=== PATIENT | female | born 1985 ===

== ENCOUNTER 2018-11-14 23:03 | Inpatient (IN) | payer OTHER ==
[~2018-11-14] VITALS: Ht 170.2 cm; Wt 75.0 kg
[2018-11-14 23:19] VITALS: BP 125/80; PULSE 90; TEMP 98.1
[2018-11-14 23:30] VITALS: BP 125/80; PULSE 90; TEMP 98.1
[2018-11-14] MEDS ORDERED: PRENATAL 191 TAB PO (23:40)
[2018-11-14 23:45] VITALS: BP 127/76; PULSE 81
[2018-11-15] VITALS (25 sets, daily range): BP systolic 113–138; BP diastolic 63–89; PULSE 76–114; TEMP 98.4–101.3
[2018-11-15 02:12] LABS: BASO # 0.1 (0.0-0.2); BASO % 0.3 % (0.0-2.0); EOS % 0.1 % (0-4.0); GRAN # 17.1 (1.4-6.5); GRAN % 81.9 % (42.2-75.2); HEMOGLOBIN 12.4 g/dl (12.5-16.0); LYMPH # 2.2 (1.2-3.4); LYMPH % 10.6 % (20.0-51.0); MEAN CELL VOLUME 85 fl (80.0-100.0); MEAN CORPUSCULAR HEMOGLOBIN 29 pg (27.0-31.0); MEAN CORPUSCULAR HGB CONC 34 g/dl (33.0-37.0); MEAN PLATELET VOLUME 12.5 fl (7.4-10.4); MONO # 1.2 (0.1-0.6); MONO % 5.9 % (1.7-9.3); PLATELET COUNT 178 K/mm3 (130-400); RED BLOOD COUNT 4.25 M/mm3 (4.10-5.30); REDCELL DISTRIBUTION WIDTH-CV 12.6 % (11.5-14.5)
[2018-11-15 02:19] LABS: HEMATOCRIT 36.2 % (37.0-47.0)
--- NOTE | 2018-11-15 03:51 | NUR ---
0330- Patient complete and feeling urge to push at this time. 0330- Dr. Roach updated on patient SVE. 0345- Dr. Roach at bedside for delivery. 0350- Delivery of head. 0351- Spontaneous delivery of viable female infant at this time. 0405- Spontaneous delivery of intact placenta, pitocin rapidly infusing. 2nd degree repair at this time per Dr. Roach, local lidocaine used. Bleeding minimal at this time point in time.
--- NOTE | 2018-11-15 12:18 | NUR ---
Initial visit; Parents thanked Quality Process Lead for offering congratulstions and God's blessings for the of their daughter. Quality Process Lead thanked them for choosing our hospital.
--- NOTE | 2018-11-15 14:14 | NUR ---
Infant at breast, LC checks latch, good latch with occassional swallows noted. Questions invited and answered.
[2018-11-15 21:31] LABS: BASO % 0.2 % (0.0-2.0); GRAN # 12.6 (1.4-6.5); GRAN % 84.5 % (42.2-75.2); LYMPH # 0.9 (1.2-3.4); LYMPH % 6.2 % (20.0-51.0); MEAN CELL VOLUME 87 fl (80.0-100.0); MEAN CORPUSCULAR HGB CONC 34 g/dl (33.0-37.0); MEAN PLATELET VOLUME 11.8 fl (7.4-10.4); MONO # 1.1 (0.1-0.6); MONO % 7.4 % (1.7-9.3); PLATELET COUNT 123 K/mm3 (130-400); RED BLOOD COUNT 2.75 M/mm3 (4.10-5.30); REDCELL DISTRIBUTION WIDTH-CV 12.6 % (11.5-14.5)
[2018-11-15 21:32] LABS: HEMATOCRIT 23.9 % (37.0-47.0); MEAN CORPUSCULAR HEMOGLOBIN 29 pg (27.0-31.0)
[2018-11-15 21:53] LABS: COLLECTION METHOD CLEAN CATCH
[2018-11-15 22:09] LABS: MUCOUS Present /lpf; PH 6 (5-8); SQUAMOUS EPITHELIAL 0-2 /hpf; URINE APPEARANCE Clear; URINE BACTERIA Rare /hpf; URINE BILIRUBIN Negative (NEGATIVE); URINE BLOOD 3+ (NEGATIVE); URINE COLOR Yellow; URINE GLUCOSE Negative (NEGATIVE); URINE KETONE Negative (NEGATIVE); URINE LEUKOCYTE ESTERASE 1+ (NEGATIVE); URINE NITRATE Positive (NEGATIVE); URINE PROTEIN(semi-quant) Negative (NEGATIVE); URINE UROBILINOGEN Negative (NEGATIVE)
--- NOTE | 2018-11-15 22:10 | NUR ---
2109 LAB HER TO DRAW BLOOD 2139 CCUA OBTAINED AND TO LAB. BABY TO NSY AND LIGHTS OUT TO REST.
[2018-11-16] VITALS: BP 108/61; PULSE 93; TEMP 98.3
[2018-11-16 04:00] VITALS: BP 117/65; PULSE 84; TEMP 98.4
[2018-11-16 08:00] VITALS: BP 128/70; PULSE 126; TEMP 100.7
[2018-11-16 09:06] LABS: ALANINE AMINOTRANSFERASE < 6 U/L (9-52); ALBUMIN 3.2 gm/dL (3.5-5.0); ALKALINE PHOSPHATASE 181 U/L (50-136); ANION GAP 6 mmol/L (7-16); AST,SGOT 35 U/L (15-37); BILIRUBIN,TOTAL 0.3 mg/dL (0.0-1.0); BLOOD UREA NITROGEN 6 mg/dL (7-17); CALCIUM 8.7 mg/dL (8.4-10.2); CARBON DIOXIDE 23 mmol/L (22-30); CHLORIDE 105 mmol/L (98-107); CREATININE, serum 0.75 (0.52-1.25); GLUCOSE 108 mg/dL (74-106); POTASSIUM 4.1 mmol/L (3.4-5.0); SODIUM 134 mmol/L (137-145); TOTAL PROTEIN 6.2 gm/dL (6.4-8.2)
[2018-11-16 09:12] LABS: COLLECTION METHOD CATHETER
[2018-11-16 09:24] LABS: MUCOUS Present /lpf; PH 5 (5-8); SQUAMOUS EPITHELIAL 0-2 /hpf; URINE APPEARANCE Hazy; URINE BACTERIA Rare /hpf; URINE BILIRUBIN Negative (NEGATIVE); URINE BLOOD 1+ (NEGATIVE); URINE COLOR Yellow; URINE GLUCOSE Negative (NEGATIVE); URINE KETONE Negative (NEGATIVE); URINE LEUKOCYTE ESTERASE 2+ (NEGATIVE); URINE NITRATE Positive (NEGATIVE); URINE PROTEIN(semi-quant) 2+ (NEGATIVE); URINE RBC 20-50 /hpf; URINE UROBILINOGEN Negative (NEGATIVE)
[2018-11-16 11:15] VITALS: BP 94/52; PULSE 103; TEMP 102
[2018-11-16 16:15] VITALS: BP 101/58; PULSE 100; TEMP 99.9
[2018-11-16 20:00] VITALS: BP 106/58; PULSE 114; TEMP 100.8
[2018-11-17] VITALS: BP 101/58; PULSE 102; TEMP 99
[2018-11-17 05:00] VITALS: BP 102/59; PULSE 92; TEMP 98.6
[2018-11-17 07:40] LABS: MEAN CELL VOLUME 90 fl (80.0-100.0); MEAN CORPUSCULAR HGB CONC 33 g/dl (33.0-37.0); MEAN PLATELET VOLUME 11.6 fl (7.4-10.4); PLATELET COUNT 151 K/mm3 (130-400); RED BLOOD COUNT 2.86 M/mm3 (4.10-5.30); REDCELL DISTRIBUTION WIDTH-CV 12.8 % (11.5-14.5)
[2018-11-17 07:50] LABS: HEMATOCRIT 25.6 % (37.0-47.0); HEMOGLOBIN 8.4 g/dl (12.5-16.0); MEAN CORPUSCULAR HEMOGLOBIN 29 pg (27.0-31.0)
[2018-11-17 08:59] VITALS: BP 107/67; PULSE 82; TEMP 97.6
[2018-11-17] MEDS ORDERED: IBU600 MG PO (09:38)
[2018-11-17] MEDS ORDERED: PERCOCET 325 MG1 TA2 PO (09:39)
== END 2018-11-17 13:24 | disposition home or self-care (01) | DRG 806 ==
LOC: LDRO 23:03 → OB 23:45 → LDR 23:45 → OB 11-15 06:30
PROVIDERS: ADMIT Student in an Organized Health Care Education/Training Program
PROC: 10E0XZZ Delivery of Products of Conception, External Approach (ICD-10-PCS; principal; 2018-11-15)
PROC: 0KQM0ZZ Repair Perineum Muscle, Open Approach (ICD-10-PCS; 2018-11-15)
PROC: 0UQMXZZ Repair Vulva, External Approach (ICD-10-PCS; 2018-11-15)
DX: O70.1 Second degree perineal laceration during delivery (principal); O86.20 Urinary tract infection following delivery, unspecified; O71.7 Obstetric hematoma of pelvis; Z37.0 Single live birth; Z3A.40 40 weeks gestation of pregnancy; O69.81X0 Labor and delivery complicated by cord around neck, without compression, not applicable or unspecified; O70.0 First degree perineal laceration during delivery; B96.20 Unspecified Escherichia coli [E. coli] as the cause of diseases classified elsewhere
CPT/HCPCS: J0690; J2590; J7120